=== PATIENT | female | born 1975 | race Caucasian/White ===

== ENCOUNTER 2020-06-01 14:20 | Outpatient (CLI) | payer OTHER, SELFPAY ==
--- NOTE | ~2020-06-01 | MM_ITS ---
EXAMINATION: MM screening teri BI w lyle HISTORY: Screening mammogram TECHNIQUE: Craniocaudal and mediolateral oblique 3-D tomosynthesis images were obtained and synthetic 2-D images were generated. CAD analysis was submitted and interpreted. COMPARISON: No prior mammogram is available for comparison at this institution. BREAST PARENCHYMAL COMPOSITION: There are scattered areas of fibroglandular density. FINDINGS: Approximately 4 mm circumscribed mass is noted at mid depth in the upper outer left breast. Diagnostic left mammogram and left breast ultrasound examination are recommended. Otherwise there is no evidence of suspicious mass, calcification, or architectural distortion to sugg est malignancy in either breast. IMPRESSION: 1. 4 mm upper outer left breast mass 2. Diagnostic left mammogram and left breast ultrasound examination are recommended. BI-RADS Category 0: Incomplete: Needs additional imaging evaluation. Reviewed, dictated and finalized at location A. GER TRADING IMPRESSION: 1. 4 mm upper outer left breast mass 2. Diagnostic left mammogram and left breast ultrasound examination are recomme nded. BI-RADS Category 0: Incomplete: Needs additional imaging evaluation.
[2020-06-01 14:36] LABS: Basophils Absolute Auto 0.06 K/mm3 (0.00-0.10); Basophils Percent Auto 0.7 % (0.0-1.0); Eosinophils Absolute Auto 0.26 K/mm3 (0.02-0.50); Eosinophils Percent Auto 3.1 % (1.0-6.0); Hematocrit 39.2 % (35.0-49.0); Hemoglobin 12.8 g/dL (12.0-15.0); Immature Granulocyte Absolute 0.02 K/mm3 (0.00-0.00); Immature Granulocyte Percent A 0.2 % (0.0-0.0); Lymphocytes Absolute Auto 1.98 K/mm3 (1.10-4.50); Lymphocytes Percent Auto 23.9 % (18.0-42.0); Mean Corpuscular HGB Conc 32.7 g/dL (32.0-36.0); Mean Corpuscular Hemoglobin 29.6 pg (27.0-31.0); Mean Corpuscular Volume 90.7 fL (78.0-102.0); Mean Platelet Volume 10.5 fl (9.2-11.8); Monocytes Absolute Auto 0.71 K/mm3 (0.10-0.90); Monocytes Percent Auto 8.6 % (2.0-11.0); Neutrophils Absolute Auto 5.2 K/mm3 (1.7-7.2); Neutrophils Percent Auto 63.5 % (50.0-70.0); Platelet Count Result 284 K/mm3 (150-420); Red Blood Count 4.32 M/mm3 (4.20-5.40); Red Cell Distribution Width 13.3 % (11.6-14.4); White Blood Count 8.3 K/mm3 (4.8-10.8)
[2020-06-01 15:14] LABS: Alanine Aminotransferase 17 U/L (14-59); Albumin Level 3.8 g/dL (3.4-5.0); Alkaline Phosphatase 100 U/L (46-116); Anion Gap 11 mmol/L (8-16); Aspartate Amino Transferase < 10 U/L (15-37); Bilirubin,Total 0.2 mg/dL (0.00-1.00); Blood Urea Nitrogen 17 mg/dL (7-18); Calcium 9.7 mg/dL (8.5-10.1); Carbon Dioxide 25 mmol/L (21-32); Chloride 104 mmol/L (98-108); Cholesterol 203 mg/dL (0-200); Estimated Glomerular Filt Rate > 60; Glucose 99 mg/dL (70-99); HDL Direct 40 mg/dL (40-60); LDL Cholesterol Calculated 124 mg/dL (<130); Osmolality Calculated 291 mOsm/kg (285-295); Potassium 4.3 mmol/L (3.5-5.1); Sodium 140 mmol/L (136-145); Total Protein 6.8 g/dL (6.4-8.2); Triglycerides 195 mg/dL (0-150)
== END 2020-06-01 14:21 | disposition home or self-care (01) ==
LOC: CHSIMG 14:24 → CHSLAB 14:27
PROVIDERS: PCP Nurse Practitioner; Visit Provider Nurse Practitioner
DX: L98.9 Disorder of the skin and subcutaneous tissue, unspecified (principal); E78.00 Pure hypercholesterolemia, unspecified; I10 Essential (primary) hypertension; Z12.31 Encounter for screening mammogram for malignant neoplasm of breast
CPT/HCPCS: 36415; 77063; 77067; 80053; 80061; 85025

== ENCOUNTER 2020-06-23 08:54 | Outpatient (CLI) | payer OTHER, SELFPAY ==
--- NOTE | ~2020-06-23 | MMUS_ITS ---
EXAMINATION: MM diagnostic teri LT w lyle, US breast LT limited HISTORY: Left breast mass on screening mammogram TECHNIQUE: Additional 3-D tomosynthesis images of the left breast were performed and synthetic 2-D im ages were generated. CAD analysis was submitted and interpreted. High resolution limited left breast ultrasound was performed. COMPARISON: 06/01/2020 FINDINGS: MAMMOGRAPHIC FINDINGS: There is a 4 mm oval, obscured mass at the 2:00 location 7 cm deep to the nipple in the middle third of the breast. ULTRASOUND: There is a 3 mm x 2 mm oval, circumscribed, parallel, hypoechoic mass with no posterior features or i nternal vascularity at the 2:00 location 3 cm from the nipple. IMPRESSION: 1. Indeterminate left breast mass. 2. Ultrasound-guided biopsy is recommended. BI-RADS category 4, suspicious findings. Reviewed, dictated and finalized at location A. L WASHING MACHINE OPERATOR IMPRESSION: 1. Indeterminate left breast mass. 2. Ultrasound-guided biopsy is recommended. BI-RADS category 4, suspicious findings.
== END 2020-06-23 08:55 | disposition home or self-care (01) ==
LOC: CHSIMG 08:56
PROVIDERS: PCP Nurse Practitioner; Visit Provider Nurse Practitioner
DX: R92.8 Other abnormal and inconclusive findings on diagnostic imaging of breast (principal); N63.21 Unspecified lump in the left breast, upper outer quadrant
CPT/HCPCS: 76642; 77061; 77065; G0279

== ENCOUNTER 2020-07-06 13:09 | Outpatient (CLI) | payer OTHER, SELFPAY ==
--- NOTE | ~2020-07-06 | US_ITS ---
EXAMINATION: US GUIDED NEEDLE BIOPSY DATE: 07/06/2020 16:45 ARTIFICIAL SNOW MAKING MACHINE OPERATOR INDICATION: 4 mm mass at 2:00 7 cm deep to the nipple in middle third of left breast reported on Febr 2020 diagnostic left mammogram and Limited left breast ultrasound examinations TECHNIQUE AND FINDINGS: The risks and potential benefits of the procedure were discussed with the patient, and written inform ed consent was obtained. Timeout procedure was performed. After sterile preparation of the left breas t, 1% lidocaine was utilized for local anesthesia. A 14G spring-loaded biopsy gun needle was advanced to the edge of the region of interest from a super ior/lateral approach utilizing sonographic guidance. A total of three tissue core samples were obtai nellie through the lesion. An Inrad tissue marker clip was then placed at the estimated approximate bio psy site; the lesion was no longer sonographically detectable after the 3 biopsy passes.. Hemostasis was achieved. A sterile bandage was applied. The patient tolerated procedure well and there was no evidence of immediate complication. The patien t was given verbal instructions prior to departing from the department. A two view mammogram was perf ormed to document tissue marker clip placement. The tissue samples were submitted to surgical patholo gy for histologic analysis. IMPRESSION: 1. Ultrasound guided biopsy of 4 mm 2:00 left breast mass with biopsy marker placement. Please refer to pathology report for histologic analysis. Reviewed, dictated and finalized at Location A. Reviewed, dictated and finalized at location A. FICIAL SNOW MAKING MACHINE OPERATOR IMPRESSION: 1. Ultrasound guided biopsy of 4 mm 2:00 left breast mass with biopsy marker pl acement. Please refer to pathology report for histologic analysis.
--- NOTE | ~2020-07-06 | MM_ITS ---
MM post biopsy diagnostic LT DATE: 07/06/2020 14:50 INDICATION: Post ultrasound-guided biopsy, upper outer quadrant left breast mass, 2:00 TECHNIQUE: Digital ML and CC views of left breast following ultrasound-guided biopsy of 2:00 lesion COMPARISON: 06/23/2020 diagnostic left digital mammogram 06/01/2020 bilateral digital screening mammogram FINDINGS: There is a biopsy marker in the upper outer quadrant of the left breast up to 2 cm posterom edial to the expected position of the prior nodular density of concern (Biopsy site marker placement was estimated at the time of the biopsy procedure due to the fact that the lesion itself was no longe r evident after 3 biopsy specimens were taken.). That discrete density noted on June 01, 2020 scre ening mammogram is not definitely localized on these postbiopsy mammogram images. There is however so me irregular increased density in the area of the former mass, which may represent post biopsy hemato ma. IMPRESSION: Status post ultrasound-guided biopsy of upper outer quadrant indeterminate 3 mm mass Reviewed, dictated and finalized at Location A. Reviewed, dictated and finalized at location A. NERY OPERATOR HELPER CRACKING UNIT IMPRESSION: Status post ultrasound-guided biopsy of upper outer quadrant indete rminate 3 mm mass
== END 2020-07-06 13:10 | disposition home or self-care (01) ==
LOC: CHSIMG 13:10
PROVIDERS: PCP Nurse Practitioner; Visit Provider Nurse Practitioner
DX: N63.21 Unspecified lump in the left breast, upper outer quadrant (principal)
CPT/HCPCS: 19083; 77065; 88305; A4648

== ENCOUNTER 2020-10-17 08:09 | Outpatient (CLI) | payer OTHER, SELFPAY ==
--- NOTE | 2020-10-17 08:45 | EST_ITS ---
Patient Info Name: Bebe King Age: 45 years : 1975 Gender: Female Ht: 65 in Wt: 145 lbs BSA: 1.75 m2 HR: 89 bpm BP: 126 / 87 mmHg Heart Rhythm: Sinus Rhythm Technical Quality: Good Exam Date: 10/17/2020 8:40 AM Exam Location: [facility] Patient Status: Outpatient Admit Date: 10/17/2020 Staff Ordering Physician: Lauri, Jane CORLEY Attending Provider: LauriJane Exercise Technologist: Gena Ramos CRT Exercise Physician: Daniela Weaver CEP Exam Type: CA stress test treadmill Study Info Indications Palpitations - An exercise stress test was performed. History/Risk Factors Hypertension: Yes Tobacco Use: Current - Every Day If Any Current, Tobacco Type: Cigarettes If Current - Every Day \T\ Cigarettes, Amount: Heavy Tobacco Use (>=10/day) History/Risk Factors Hypertension. Smoker. Summary 1. 1. Negative Kwadwo exercise stress test for ischemic ST changes by ECG criteria. 2. 2. Good functional capacity, achieving 10.9 METs of workload. 3. 3. Appropriate HR response to exercise. 4. 4. Appropriate HR recovery at 1 minute post exercise. 5. 5. No imaging with stress testing. Protocol: Kwadwo Stress ECG Details Stage: REST Duration (min): 1 min : 30 sec Speed (mph): 0.0 Grade (%): 0 HR (bpm): 88 SBP (mmHg): 118 DBP (mmHg): 86 METS: --- Stage: REST Duration (min): 1 min : 58 sec Speed (mph): 0.0 Grade (%): 0 HR (bpm): 85 SBP (mmHg): 118 DBP (mmHg): 86 METS: --- Stage: STAGE 1 Duration (min): 1 min : 0 sec Speed (mph): 1.7 Grade (%): 10 HR (bpm): 98 SBP (mmHg): 118 DBP (mmHg): 86 METS: --- Stage: STAGE 1 Duration (min): 2 min : 0 sec Speed (mph): 1.7 Grade (%): 10 HR (bpm): 101 SBP (mmHg): 118 DBP (mmHg): 86 METS: --- Stage: STAGE 1 Duration (min): 3 min : 0 sec Speed (mph): 1.7 Grade (%): 10 HR (bpm): 102 SBP (mmHg): 147 DBP (mmHg): 74 METS: --- Stage: STAGE 2 Duration (min): 1 min : 0 sec Speed (mph): 2.5 Grade (%): 12 HR (bpm): 110 SBP (mmHg): 147 DBP (mmHg): 74 METS: --- Stage: STAGE 2 Duration (min): 2 min : 0 sec Speed (mph): 2.5 Grade (%): 12 HR (bpm): 116 SBP (mmHg): 147 DBP (mmHg): 74 METS: --- Stage: STAGE 2 Duration (min): 3 min : 0 sec Speed (mph): 2.5 Grade (%): 12 HR (bpm): 117 SBP (mmHg): 147 DBP (mmHg): 74 METS: --- Stage: STAGE 3 Duration (min): 1 min : 0 sec Speed (mph): 3.4 Grade (%): 14 HR (bpm): 129 SBP (mmHg): 130 DBP (mmHg): 90 METS: --- Stage: STAGE 3 Duration (min): 2 min : 0 sec Speed (mph): 3.4 Grade (%): 14 HR (bpm): 136 SBP (mmHg): 130 DBP (mmHg): 90 METS: --- Stage: STAGE 3 Duration (min): 3 min : 0 sec Speed (mph): 3.4 Grade (%): 14 HR (bpm): 139 SBP (mmHg): 130 DBP (mmHg): 90
== END 2020-10-17 08:10 | disposition home or self-care (01) ==
LOC: CHSCARD 08:10
PROVIDERS: PCP Nurse Practitioner; Visit Provider Nurse Practitioner
DX: R00.2 Palpitations (principal)
CPT/HCPCS: 93017

== ENCOUNTER 2020-11-07 16:52 | Emergency (ER) | payer OTHER, SELFPAY ==
--- NOTE | 2020-11-07 16:59 | ED.SKABFB ---
HPI - Skin/Abscess/Foreign Bdy General Chief complaint: Skin/Abscess/Foreign Body Stated complaint: cyst Source: patient and RN notes reviewed Mode of arrival: ambulatory Limitations: no limitations History of Present Illness complaint: abscess/boil Related Data Home Medications Medication Instructions Recorded Confirmed bupropion HCl [Wellbutrin XL] See Rx Instructions .ROUTE .COMPLEX 11/07/20 11/07/20 losartan [Cozaar] See Rx Instructions .ROUTE .COMPLEX 11/07/20 11/07/20 Allergies Allergy/AdvReac Type Severity Reaction Status Date / Time No Known Allergies Allergy Unknown Unverified 12/20/05 21:36 Review of Systems Review of Systems: All systems reviewed & are unremarkable except as noted in HPI and below Constitutional: Constitutional: Denies chills and Denies fever(s) PMFSH Past Medical History Medical History (Updated 11/07/20 @ 17:16 by Harman Galaviz MD) Hypertension Surgical History Surgical History (Updated 11/07/20 @ 17:03 by Harman Galaviz MD) No pertinent past surgical history Social History Social History (Updated 11/07/20 @ 17:03 by Harman Galaviz MD) Smoking packs per day: 1 Smoking cigarettes per day: 20.0 Smoking status: Current every day smoker Tobacco type: cigarettes Alcohol intake: current Alcohol use details: occasional Substance use: never Exam Const: General: healthy appearing and no acute distress Nutritional Appearance: well nourished Orientation/consciousness: patient oriented x3 Other: female nurse in room during examination. HENMT: Head: normal to inspection Ears: external ears normal Eyes: Conjunctivae: conjunctivae normal Pupils: Equal, round and reactive pupils present EOM: EOMs intact bilaterally Neck: Neck: normal visual inspection Resp: Effort & Inspection: normal respiratory effort Auscultation: clear to auscultation bilaterally Cardio: Rate: regular rate Rhythm: regular rhythm Back/Spine/Pelvis: Cervical Spine: cervical ROM normal Thoracic/Lumbar Spine: thoraco-lumbar ROM normal Skin: Lesions: lesion noted fissure right mid buttock Neuro: General: patient oriented x3, moves all extremities, no meningeal signs and no focal motor deficits Speech: normal speech Gait exam (Neuro): Normal gait present Extrem: General: normal to inspection and no clubbing, cyanosis or edema Psych: Appearance: grossly normal and well kempt Mental Status: mental status grossly normal Affect: normal affect Attitude: cooperative Thought content: Yes Normal thought content present Procedures Abscess I/D vi-rectal: Date of Incision: 11/07/20 Time of Incision: 17:06 Side (if applicable): right Local Anesthetic: lidocaine 1% Amount of anesthesia used (mL): 8 Technique: incised with #11 blade and probed loculations Irrigation: No Packing used?: none I&D Results: Pus and Blood Discharge Plan Discharge Clinical Impression: Abscess Patient Disposition: Home, Self-Care Condition: Improved Instructions: Abscess (ED), Incision and Drainage (ED) Additional Instructions: change bandage as needed. Follow-up with primary care any worsening symptoms. Prescriptions: No Action losartan [Cozaar] 100 mg tablet See Rx Instructions .ROUTE .COMPLEX RF: 0 bupropion HCl [Wellbutrin XL] 150 mg tablet extended release 24 hr See Rx Instructions .ROUTE .COMPLEX RF: 0 Follow-up/Referrals: UNKNOWN,DOCTOR [Primary Care Provider] - Time of Disposition: 17:16
[2020-11-07 17:00] VITALS: BP 128/88; PULSE 88; RESP 16; TEMP 36.1; O2SAT 97
[2020-11-07] MEDS: LIDOCAINE HCL 1% LOCAL INJ 20 ML VIAL INFILTRATE (17:04)
--- NOTE | 2020-11-07 17:23 | PC.NURSE ---
area cleaned with betadine by , area injected with 10ML lidocaine by , and 2cm incision. 4x4 dressing applied by
[2020-11-07 17:24] VITALS: BP 137/80; PULSE 87; RESP 17; TEMP 36.4; O2SAT 97
== END 2020-11-07 17:25 | disposition home or self-care (01) ==
PROVIDERS: Emergency Provider Emergency Medicine
DX: L02.91 Cutaneous abscess, unspecified (principal)
CPT/HCPCS: 46050; 99282

== ENCOUNTER 2021-06-05 13:07 | Outpatient (CLI) | payer BC, SELFPAY ==
[2021-06-05 14:17] LABS: SARS-CoV-2 RNA PCR Negative (Negative)
== END 2021-06-05 13:08 | disposition home or self-care (01) ==
LOC: CHSLAB 13:12
PROVIDERS: PCP Family Medicine; Visit Provider Family Medicine
DX: Z01.818 Encounter for other preprocedural examination (principal); Z20.822 Contact with and (suspected) exposure to COVID-19
CPT/HCPCS: C9803; U0003; U0005

== ENCOUNTER 2021-07-12 09:31 | Outpatient (CLI) | payer BC, SELFPAY ==
--- NOTE | ~2021-07-12 | MM_ITS ---
EXAMINATION: MM screening [facility] BI w lyle HISTORY: Screening mammogram TECHNIQUE: Craniocaudal and mediolateral oblique 3-D tomosynthesis images were obtained and synthetic 2-D images were generated. CAD analysis was submitted and interpreted. COMPARISON: 06/23/2020, 06/01/2020 BREAST PARENCHYMAL COMPOSITION: There are scattered areas of fibroglandular density. FINDINGS: There is no suspicious mass, calcification, or architectural distortion to suggest malignan cy in either breast. There has been no suspicious interval change. IMPRESSION: 1. No mammographic evidence of malignancy. 2. Recommend routine screening mammography in one year. BI-RADS Category 1: Negative Reviewed, dictated and finalized at location A.
== END 2021-07-12 09:32 | disposition home or self-care (01) ==
DX: Z12.31 Encounter for screening mammogram for malignant neoplasm of breast (principal)
CPT/HCPCS: 77063; 77067

== ENCOUNTER 2021-08-14 10:43 | Outpatient (CLI) | payer BC, SELFPAY ==
[2021-08-14 15:55] LABS: SARS-CoV-2 RNA PCR Negative (Negative)
== END 2021-08-14 10:44 | disposition home or self-care (01) ==
LOC: CHSLAB 10:45
PROVIDERS: PCP Family Medicine; Visit Provider Family Medicine
DX: Z01.818 Encounter for other preprocedural examination (principal); Z20.822 Contact with and (suspected) exposure to COVID-19
CPT/HCPCS: C9803; U0003; U0005

== ENCOUNTER 2021-08-25 14:55 | Outpatient (CLI) | payer BC, SELFPAY ==
[2021-08-25 15:22] LABS: Basophils Absolute Auto 0.08 K/mm3 (0.00-0.10); Eosinophils Absolute Auto 0.34 K/mm3 (0.02-0.50); Eosinophils Percent Auto 4.4 % (1.0-6.0); Hematocrit 33.3 % (35.0-49.0); Hemoglobin 10.5 g/dL (12.0-15.0); Immature Granulocyte Absolute 0.02 K/mm3 (0.00-0.00); Immature Granulocyte Percent A 0.3 % (0.0-0.0); Lymphocytes Absolute Auto 2.15 K/mm3 (1.10-4.50); Lymphocytes Percent Auto 27.6 % (18.0-42.0); Mean Corpuscular HGB Conc 31.5 g/dL (32.0-36.0); Mean Corpuscular Hemoglobin 28.2 pg (27.0-31.0); Mean Corpuscular Volume 89.3 fL (78.0-102.0); Mean Platelet Volume 10.4 fl (9.2-11.8); Monocytes Absolute Auto 0.66 K/mm3 (0.10-0.90); Monocytes Percent Auto 8.5 % (2.0-11.0); Neutrophils Absolute Auto 4.5 K/mm3 (1.7-7.2); Neutrophils Percent Auto 58.2 % (50.0-70.0); Platelet Count Result 361 K/mm3 (150-420); Red Blood Count 3.73 M/mm3 (4.20-5.40); Red Cell Distribution Width 13.2 % (11.6-14.4); White Blood Count 7.8 K/mm3 (4.8-10.8)
[2021-08-25 15:27] LABS: CRP 0.6 mg/dL (0.0-0.9)
[2021-08-27 20:24] LABS: Cryptococcus Antigen Not Detected (Not Detected); Cryptococcus Specimen Source Serum
[2021-08-29 16:17] LABS: Aspergillus fumigatus (m3) IgG 15.9 mcg/mL (<2.0)
[2021-08-29 19:13] LABS: Blastomyces Antibody Negative (Negative)
[2021-08-31 19:37] LABS: Coccidioides Ab to F Ag (IgG) NEGATIVE; Coccidioides Ab to TP Ag (IgM) NEGATIVE
== END 2021-08-25 14:56 | disposition home or self-care (01) ==
LOC: CHSLAB 14:57
DX: R05.9 Cough, unspecified (principal); R06.02 Shortness of breath
CPT/HCPCS: 36415; 85025; 86001; 86003; 86140; 86403; 86612; 86635; 86698; 87385

== ENCOUNTER 2021-09-21 14:20 | Outpatient (CLI) | payer BC, SELFPAY ==
[2021-09-28 08:16] LABS: Reference Lab Test Name ASPERGILLUS AG
== END 2021-09-21 14:21 | disposition home or self-care (01) ==
LOC: CHSLAB 14:28
DX: B44.9 Aspergillosis, unspecified (principal); Z51.81 Encounter for therapeutic drug level monitoring
CPT/HCPCS: 36415; 87305

== ENCOUNTER 2021-09-22 15:16 | Outpatient (CLI) | payer BC, SELFPAY ==
[2021-09-27 11:44] LABS: Reference Lab Test Name FUNGITELL
== END 2021-09-22 15:17 | disposition home or self-care (01) ==
LOC: CHSLAB 15:20
DX: B44.9 Aspergillosis, unspecified (principal)
CPT/HCPCS: 36415; 87449

== ENCOUNTER 2021-09-26 20:32 | Emergency (ER) | payer BC, SELFPAY ==
--- NOTE | ~2021-09-26 | XR_ITS ---
EXAMINATION: XR ankle RT min 3V INDICATION: Right ankle pain TECHNIQUE: Four views of the right ankle are obtained. COMPARISON: None available FINDINGS: There is no fracture, dislocation, or subluxation. A posterior calcaneal enthesophyte is no karla. The bones, soft tissues, and joint spaces are otherwise normal. IMPRESSION: 1. No acute osseous abnormality. Reviewed, dictated and finalized at location F.
--- NOTE | ~2021-09-26 | XR_ITS ---
EXAMINATION: XR chest 1V portable INDICATION: Shortness of breath and lower limb swelling TECHNIQUE: Portable AP chest at 2007 hours COMPARISON: 04/17/2017 FINDINGS: The lungs are free of acute opacities. There is no pleural effusion or pneumothorax. The ca rdiomediastinal silhouette is normal. IMPRESSION: 1. No acute cardiopulmonary abnormality. Reviewed, dictated and finalized at location F.
[2021-09-26 20:43] VITALS: BP 115/76; PULSE 73; RESP 18; TEMP 36.6; O2SAT 97
--- NOTE | 2021-09-26 20:53 | ED.GENADULT ---
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 She has had this swelling for 1 month for which she is on IV Lasix. she had a workup including venous Dopplers of lower extremity was negative for DVT/PE. She presents to the ER with ongoing right leg swelling. She also complained of generalized arthralgias. Onset (ago): month(s) ( Started 1 month ago) Location: lower extremity Radiation: non-radiation Severity: moderate Relieving factors: none Exacerbating factors: none Associated symptoms: denies other symptoms Treatments prior to arrival: none Related Data Home Medications Medication Instructions Recorded Confirmed bupropion HCl 150 mg 24 hr tablet, See Rx Instructions .Route .COMPLEX 11/07/20 09/26/21 extended release (Wellbutrin XL) losartan 100 mg tablet (Cozaar) See Rx Instructions .Route .COMPLEX 11/07/20 09/26/21 amlodipine 10 mg tablet 10 tablet PO DAILY 09/26/21 09/26/21 fluoxetine 20 mg capsule 20 cap PO DAILY 09/26/21 09/26/21 furosemide 20 mg tablet 20 tablet PO DAILY 09/26/21 09/26/21 omeprazole 40 mg capsule,delayed 40 cap PO DAILY 09/26/21 09/26/21 release Allergies Allergy/AdvReac Type Severity Reaction Status Date / Time No Known Allergies Allergy Unknown Verified 09/26/21 20:56 Review of Systems Review of Systems: All systems reviewed & are unremarkable except as noted in HPI and below Constitutional: Constitutional: Reports as per HPI and Reports no additional constitutional complaints Eyes: Eyes: Reports as per HPI and Reports no additional eye complaints ENT: Reports system reviewed and no additional complaints, except as documented and Reports as per HPI Cardiovascular: Cardiovascular: Reports as per HPI and Reports no additional cardiovascular complaints Respiratory: Respiratory: Reports as per HPI, Reports no additional respiratory complaints, Reports chest congestion, Reports cough and Reports dyspnea Gastrointestinal: Gastrointestinal: Reports as per HPI and Reports no additional gastrointestinal complaints Genitourinary: Genitourinary: Reports no additional female genitourinary complaints Musculoskeletal: Musculoskeletal: Reports arthralgias Comments: generalized joint pain worse on right ankle Integumentary/Breasts: Skin/Breast: Reports system reviewed and no additional complaints, except as docu and Reports as per HPI Comments: recent cutaneous abscess in the buttock which was drained Neurologic: Reports system reviewed and no additional complaints, except as documented and Reports as per HPI Psychiatric: Psychiatric: Reports no additional psychiatric complaints and Reports as per HPI Endocrine: Endocrine: Reports no additional endocrine complaints and Reports as per HPI Hematologic/Lymphatic: Hematologic/Lymphatic: Reports no additional hematologic/lymphatic complaints and Reports as per HPI Allergic/Immunologic: Allergic/Immunologic: Reports no additional allergic/immunologic complaints PMFSH Past Medical History Medical History Hypertension Surgical History Surgical History No pertinent past surgical history Social History Social History Smoking packs per day: 1 Smoking cigarettes per day: 20.0 Smoking status: Current every day smoker Tobacco type: cigarettes Alcohol intake: current Alcohol use details: occasional Substance use: never Gender identity (if verbalized by the patient): Female Exam Const: Gen
--- NOTE | 2021-09-26 21:14 | ECG_ITS ---
Measurements Intervals [place] Rate: 67 P: 26 WV: 135 QRS: 25 QRSD: 81 T: 79 QT: 404 QTc: 427 Interpretive Statements SINUS RHYTHM BASELINE ARTIFACT NORMAL ECG NO PREVIOUS ECG AVAILABLE FOR COMPARISON Electronically Signed On 09-27-2021 11:23:56 CDT by Ronal Ramos M.D.
[2021-09-26 21:32] LABS: Basophils Absolute Auto 0.06 K/mm3 (0.00-0.10); Basophils Percent Auto 0.7 % (0.0-1.0); Eosinophils Absolute Auto 0.17 K/mm3 (0.02-0.50); Eosinophils Percent Auto 2.1 % (1.0-6.0); Hematocrit 31.3 % (35.0-49.0); Hemoglobin 9.8 g/dL (12.0-15.0); Immature Granulocyte Absolute 0.03 K/mm3 (0.00-0.00); Immature Granulocyte Percent A 0.4 % (0.0-0.0); Lymphocytes Absolute Auto 1.88 K/mm3 (1.10-4.50); Lymphocytes Percent Auto 23.3 % (18.0-42.0); Mean Corpuscular HGB Conc 31.3 g/dL (32.0-36.0); Mean Corpuscular Hemoglobin 27.1 pg (27.0-31.0); Mean Corpuscular Volume 86.7 fL (78.0-102.0); Monocytes Absolute Auto 0.83 K/mm3 (0.10-0.90); Monocytes Percent Auto 10.3 % (2.0-11.0); Neutrophils Absolute Auto 5.1 K/mm3 (1.7-7.2); Neutrophils Percent Auto 63.2 % (50.0-70.0); Platelet Count Result 321 K/mm3 (150-420); Red Blood Count 3.61 M/mm3 (4.20-5.40); Red Cell Distribution Width 14.2 % (11.6-14.4); White Blood Count 8.1 K/mm3 (4.8-10.8)
[2021-09-26 21:45] LABS: INR 0.9
[2021-09-26 21:54] LABS: Add Urine Microscopic? NO; Appearance Urine Clear (Clear); Bilirubin Urine Negative (Negative); Blood Urine Negative (Negative); Color Urine Light Yellow (Yellow); Glucose Urine UA Negative (Negative); Ketones Urine Negative (Negative); Leukocyte Esterase Ur Negative (Negative); Nitrate Urine Negative (Negative); Protein Urine Negative (Negative); Urobilinogen Urine 0.2 mg/dL (0.2-1.0)
[2021-09-26 21:57] LABS: Alanine Aminotransferase 20 U/L (14-59); Albumin Level 3.4 g/dL (3.4-5.0); Alkaline Phosphatase 135 U/L (46-116); Anion Gap 8 mmol/L (8-16); Aspartate Amino Transferase 12 U/L (15-37); Bilirubin,Total 0.1 mg/dL (0.00-1.00); Blood Urea Nitrogen 16 mg/dL (7-18); Calcium 9.5 mg/dL (8.5-10.1); Carbon Dioxide 23 mmol/L (21-32); Chloride 102 mmol/L (98-108); Estimated CRCL calculation 58 ml/min; Estimated Glomerular Filt Rate 53; Glucose 146 mg/dL (70-99); NT Pro B Type Natriuretic Pept 188 pg/mL (0-125); Osmolality Calculated 280 mOsm/kg (285-295); Potassium 3.7 mmol/L (3.5-5.1); Sodium 133 mmol/L (136-145); Thyroid Stimulating Hormone 0.89 uIU/mL (0.36-3.74); Total Protein 7.1 g/dL (6.4-8.2); Troponin I 7.8 ng/L (0.00-60.4)
[2021-09-26 22:50] VITALS: BP 113/67; PULSE 62; RESP 16; TEMP 36.2; O2SAT 97
== END 2021-09-26 22:52 | disposition home or self-care (01) ==
PROVIDERS: Emergency Provider Internal Medicine Critical Care Medicine
DX: M79.89 Other specified soft tissue disorders (principal); N28.9 Disorder of kidney and ureter, unspecified; D64.9 Anemia, unspecified
CPT/HCPCS: 36415; 71045; 73610; 80053; 81003; 83880; 84443; 84484; 85025; 85610; 93005; 99284

== ENCOUNTER 2021-10-01 15:26 | Outpatient (CLI) | payer BC, SELFPAY ==
--- NOTE | 2021-10-01 16:01 | PC.NURSE ---
Patient here for PICC line dressing change. Patient brought in sealed dressing change kit. Old dressing removed, insertion site cleansed X3 from insertion site outer edges. Air dried, stat lock changed. Extension line and new end cap applied. Line flushed. Opsite dressing applied. Labs obtained. Patient tolerated well.
== END 2021-10-01 15:27 | disposition home or self-care (01) ==
LOC: CHSTREATRM 15:28
DX: B44.9 Aspergillosis, unspecified (principal)
CPT/HCPCS: 99211; G0463

== ENCOUNTER 2021-10-08 17:14 | Outpatient (CLI) | payer BC, SELFPAY ==
--- NOTE | 2021-10-08 17:55 | PC.NURSE ---
1800 patient here for picc line drg change. explained procedure to her. vocalizes an understanding. patient wearing mask. old drg removed. insertion site looks good and clean. area cleansed unders terile tech. sterile drg reapllied. line flushed with saline. good return and new caps applied. tolerated well. patient left on her own accord. encouraged to call op services in morning to set up further drg changes. she is in hope line will be removed this week.
== END 2021-10-08 17:15 | disposition home or self-care (01) ==
DX: B44.9 Aspergillosis, unspecified (principal)
CPT/HCPCS: 99211; G0463

== ENCOUNTER 2021-10-09 17:17 | Outpatient (CLI) | payer BC, SELFPAY ==
[2021-10-09 17:47] LABS: Basophils Absolute Auto 0.13 K/mm3 (0.00-0.10); Basophils Percent Auto 1.2 % (0.0-1.0); Eosinophils Absolute Auto 0.35 K/mm3 (0.02-0.50); Eosinophils Percent Auto 3.3 % (1.0-6.0); Hematocrit 36.6 % (35.0-49.0); Hemoglobin 11.5 g/dL (12.0-15.0); Immature Granulocyte Absolute 0.06 K/mm3 (0.00-0.00); Immature Granulocyte Percent A 0.6 % (0.0-0.0); Lymphocytes Absolute Auto 2.65 K/mm3 (1.10-4.50); Lymphocytes Percent Auto 24.9 % (18.0-42.0); Mean Corpuscular HGB Conc 31.4 g/dL (32.0-36.0); Mean Corpuscular Hemoglobin 26.6 pg (27.0-31.0); Mean Corpuscular Volume 84.7 fL (78.0-102.0); Mean Platelet Volume 10.2 fl (9.2-11.8); Monocytes Absolute Auto 1.11 K/mm3 (0.10-0.90); Monocytes Percent Auto 10.4 % (2.0-11.0); Neutrophils Absolute Auto 6.3 K/mm3 (1.7-7.2); Neutrophils Percent Auto 59.6 % (50.0-70.0); Platelet Count Result 394 K/mm3 (150-420); Red Blood Count 4.32 M/mm3 (4.20-5.40); White Blood Count 10.6 K/mm3 (4.8-10.8)
[2021-10-09 18:11] LABS: Alanine Aminotransferase 20 U/L (14-59); Alkaline Phosphatase 170 U/L (46-116); Anion Gap 10 mmol/L (8-16); Aspartate Amino Transferase 12 U/L (15-37); Bilirubin,Total 0.2 mg/dL (0.00-1.00); Blood Urea Nitrogen 23 mg/dL (7-18); Calcium 11.1 mg/dL (8.5-10.1); Carbon Dioxide 29 mmol/L (21-32); Chloride 97 mmol/L (98-108); Estimated Glomerular Filt Rate 32; Glucose 99 mg/dL (70-99); Osmolality Calculated 285 mOsm/kg (285-295); Potassium 3.3 mmol/L (3.5-5.1); Sodium 136 mmol/L (136-145); Total Protein 8.2 g/dL (6.4-8.2)
[2021-10-20 10:13] LABS: Reference Lab Test Name FUNGITELL
[2021-10-20 10:16] LABS: Reference Lab Test Name VORICONAZOLE
== END 2021-10-09 17:18 | disposition home or self-care (01) ==
LOC: CHSLAB 17:28
DX: B44.9 Aspergillosis, unspecified (principal)
CPT/HCPCS: 36415; 80053; 80285; 85025; 87449